=== PATIENT | female | born 1960 | race Caucasian/White ===

== ENCOUNTER 2018-01-18 12:51 | Emergency (ER) | payer OTHER ==
[~2018-01-18] VITALS: Ht 167.6 cm; Wt 116.4 kg
[~2018-01-18 12:51] MED LIST: AMBIEN5 MG PO; ANTIVERT25 MG PO; BUSPAR5 MG PO; CYMBALTA60 MG PO; DIOVAN320 MG PO; DITROPAN5 MG PO; FLEXERIL10 MG PO; FUROSEMIDE20 MG PO; GLUCOPHAGE500 MG PO; LANTUS 10100 UNITS/ SC; LEVEMIR FL100 UNIT/1 SC; LISINOPRIL2.5 MG PO; NEURONTIN600 MG PO; NOHOMEMEDS; NOVOLOG 10100 UNITS/ SC; OMEPRAZOLE20 M2 PO; ONGLYZA5 MG PO; PAXIL10 MG PO; PRILOSEC20 MG PO; PROMETHAZINE HC25 M1 PO; SYNTHROID25 MCG PO; TANZEUM30 MG/0.5 SC; TOPAMAX25 MG PO; TYLENOL WITH C1 EACH PO; VICTOZA PO; VIIBRYD20 MG PO; ZOFRAN4 MG PO; ZYRTEC10 M3 PO
[2018-01-18] MEDS ORDERED: PERCOCET 5/31 TABLET PO (15:34)
[2018-01-18] MEDS ORDERED: MOBIC15 MG PO (15:34)
[2018-01-18 15:47] VITALS: BP 101/80
== END 2018-01-18 15:48 | disposition home or self-care (01) ==
LOC: EME 12:51
DX: M54.32 Sciatica, left side (principal); E11.9 Type 2 diabetes mellitus without complications; I10 Essential (primary) hypertension; F41.9 Anxiety disorder, unspecified; Z88.6 Allergy status to analgesic agent
CPT/HCPCS: 73502; 99281; 99284; J1885; J8540